=== PATIENT | female | born 1945 | race Caucasian/White ===

== ENCOUNTER → 2016-10-05 | Outpatient (CLI) | payer MEDICARE, OTHER ==
[~2016-10-05] MED LIST: ATIVAN0.5 MG/1 M PO; BACTRIM 400-801 EACH PO; CENTRUM SILVER1 EAC1 PO; COLACE100 MG PO; FOSAMAX70 MG PO; MILK OF MAGN400 ML PO; MIRALAX17 GM PO; NAPROSYN250 MG PO; OSCAL + D500 MG PO; PERCOCET 5-3251 EACH PO; REQUIP1 MG PO; TYLENOL325 MG PO; VALIUM5 MG PO; VASOTEC10 MG PO; VITAMIN E100 UNI2 PO; WELLBUTRIN XL150 MG PO; XARELTO10 MG PO
== END | disposition disaster alternative care site (69) ==
LOC: LNEW 16:04
DX: M17.12 Unilateral primary osteoarthritis, left knee (principal)